=== PATIENT | male | born 1995 | race Caucasian/White ===

== ENCOUNTER 2020-02-03 01:24 | Emergency (ER) | payer MEDICAID ==
[2020-02-03] MEDS ORDERED: Ondansetron 4 MG/2 ML SDV IVPUSH ONE (01:59)
[2020-02-03] MEDS ORDERED: HYDROmorphone 1 MG/ML Syringe IVPUSH STA (01:59)
[2020-02-03] MEDS ORDERED: Sodium Chloride 0.9% 1,000 ML IV SCH (02:00)
--- NOTE | 2020-02-03 02:06 | EDM.PDOC ---
ED HPI GENERAL MEDICAL PROBLEM - General Chief Complaint: Abdominal Pain Stated Complaint: ABDOMINAL PAIN/CONSTIPATION Time Seen by Provider: 02/03/20 01:34 Source of Information: Reports: Patient History Limitations: Reports: No Limitations - History of Present Illness INITIAL COMMENTS - FREE TEXT/NARRATIVE: Mr. Chavez is a very pleasant 24-year-old man who now presents to the emergency department with 2 to 3 days of crampy/sharp lower abdominal pain. The pain has been waxing and waning. He states that he feels better if supine, otherwise, he has not identified any modifiers. The patient states that he had a large although hard bowel movement on , 02/02/2020. No recent nausea or vomiting. No recent fever. The patient states that he took ibuprofen around midnight tonight, otherwise, he has not taken any thla-rqz-[id number] or home remedies to address his symptoms. The patient states that he has had similar symptoms in the past, most recently about 2 years ago. He did not seek medical attention at that time. Here in the ED, the patient is found to be hemodynamically stable, afebrile, saturating 97% on room air. The patient states that he last ate around 21:00 last night. Other than recurrent constipation, the patient denies having a recent fever, chills, sore throat, ear pain, nasal or sinus congestion, cough, dyspnea, chest pain, palpitations, nausea, vomiting, diarrhea, urinary symptoms, recent weight gain or weight loss, recent bloody bowel movements or black bowel movements, recent joint aches, headaches, or rashes. The patient does not have a PCP. Abdominal Pain Score (Numeric/FACES): 6 - Related Data Allergies Allergy/AdvReac Type Severity Reaction Status Date / Time No Known Allergies Allergy Verified 02/03/20 01:37 Home Meds: Home Meds . [No Known Home Meds] 02/03/20 [History] Past Medical History Psychiatric History: Reports: ADHD (untreated) - Past Surgical History HEENT Surgical History: Reports: Oral Surgery (wisdom teeth extracted) Social & Family History - Tobacco Use Smoking Status *Q: Current Every Day Smoker Tobacco Use Within Last Twelve Months: Vaping (Nicotine) Years of Tobacco use: 10 Packs/Tins Daily: 0.5 - Alcohol Use Alcohol Use History: Yes Alcohol Use Frequency: Socially - Recreational Drug Use Recreational Drug Use: Yes Drug Use in Last 12 Months: No Recreational Drug Type: Reports: Marijuana/Hashish (last smoked 2017) - Living Situation & Occupation Living situation: Reports: Single, with Significant Other (Girlfriend + her son) Occupation: Employed ([employer]) ED ROS GENERAL - Review of Systems Review Of Systems: Comprehensive ROS is negative, except as noted in HPI. ED EXAM, GI/ABD - Physical Exam Exam: See Below Exam Limited By: No Limitations General Appearance: Alert, WD/WN, No Apparent Distress Eyes: Bilateral: Normal Appearance, EOMI Ears: Normal External Exam, Hearing Grossly Normal Nose: Normal Inspection Throat/Mouth: Normal Inspection, Normal Lips, Normal Voice, No Airway Compromise Head: Atraumatic, Normocephalic Neck: Normal Inspection, Full Range of Motion Respiratory/Chest: No Respiratory Distress, Lungs Clear, Normal Breath Sounds, No Accessory Muscle Use Cardiovascular: Normal Peripheral Pulses, Regular Rate, Rhythm, No Edema, No Gallop, No JVD, No Murmur, No Rub GI/Abdominal Exam: Normal Bowel Sounds, Soft, No Organomegaly, No Distention, No Abnormal Bruit, No Mass, Tender (Considerable tenderness to palpation of the lower abdomen, especially suprapubically and the right lower quadrant. No rebound. Nontender to the upper abdomen. Obturator sign equivocal. Psoas sign equivocal. Heel drop sign equivocal.) (Male) Exam: Deferred Rectal (Males) Exam: Deferred Back Exam: Normal Inspection, Full Range of Motion. No: CVA Tenderness (L), CVA Tenderness (R) Extremities: Normal Inspection, Normal Range of Motion, No Pedal Edema, Normal Capillary Refill Neurological: Alert, Oriented, Normal Cognition, No Motor/Sensory Deficits Psychiatric: Normal Affect Skin Exam: Warm, Dry, Intact, Normal Color, No Rash Course - Vital Signs Last Recorded V/S: Last Vital Signs Temp 37.1 C 02/03/20 01:34 Pulse 100 02/03/20 01:34 Resp 16 02/03/20 01:34 BP 142/83 H 02/03/20 01:34 Pulse Ox 97 02/03/20 01:34 - Orders/Labs/Meds Orders: Active Orders 24 hr Category Date Time Status Abdomen Pelvis w Cont [CT] Stat Exams 02/03/20 01:59 Taken Sodium Chloride 0.9% [Normal Saline] 1,000 ml Med 02/03/20 02:00 Active IV ASDIRECTED Medication Orders Sodium Chloride (Normal Saline) 1,000 mls @ 150 mls/hr IV ASDIRECTED ROLANDO Last Admin: 02/03/20 02:09 Dose: 150 mls/hr Documented by: LASHAE Labs: Laboratory Tests 02/03/20 02/03/20 02/03/20 Range/Units 02:03 02:03 03:25 WBC 5.44 (4.23-9.07) K/mm3 RBC 4.86 (4.63-6.08) M/mm3 Hgb 15.0 (13.7-17.5) gm/dl Hct 45.0 (40.1-51.0) % MCV 92.6 H (79.0-92.2) fl MCH 30.9 (25.7-32.2) pg MCHC 33.3 (32.2-35.5) g/dl RDW Std Deviation 42.7 (35.1-43.9) fL Plt Count 339 H (163-337) K/mm3 MPV 10.0 (9.4-12.3) fl Neutrophils % (Manual) 55 (40-60) % Band Neutrophils % 0 (0-10) % Lymphocytes % (Manual) 26 (20-40) % Atypical Lymphs % 0 % Monocytes % (Manual) 16 H (2-10) % Eosinophils % (Manual) 1 (0.8-7.0) % Basophils % (Manual) 2 H (0.2-1.2) Platelet Estimate Adequate Plt Morphology Comment Normal RBC Morph Comment Normal Sodium 139 (136-145) mEq/L Potassium 3.6 (3.5-5.1) mEq/L Chloride 101 (98-107) mEq/L Carbon Dioxide 30 (21-32) mEq/L Anion Gap 11.6 (5-15) BUN 7 (7-18) mg/dL Creatinine 1.0 (0.7-1.3) mg/dL Est Cr Clr Drug Dosing 124.23 mL/min Estimated GFR (MDRD) > 60 (>60) mL/min BUN/Creatinine Ratio 7.0 L (14-18) Glucose 94 (74-106) mg/dL Calcium 9.0 (8.5-10.1) mg/dL Total Bilirubin 0.5 (0.2-1.0) mg/dL AST 13 L (15-37) U/L ALT 21 (16-63) U/L Alkaline Phosphatase 90 (46-116) U/L Total Protein 7.8 (6.4-8.2) g/dl Albumin 4.3 (3.4-5.0) g/dl Globulin 3.5 gm/dL Albumin/Globulin Ratio 1.2 (1-2) Urine Color Light yellow (Yellow) Urine Appearance Clear (Clear) Urine pH 6.5 (5.0-8.0) Ur Specific [place] 1.015 (1.005-1.030) Urine Protein Negative (Negative) Urine Glucose (UA) Negative (Negative) Urine Ketones Negative (Negative) Urine Occult Blood Negative (Negative) Urine Nitrite Negative (Negative) Urine Bilirubin Negative (Negative) Urine Urobilinogen 0.2 (0.2-1.0) Ur Leukocyte Esterase Negative (Negative) Urine RBC Not seen (0-5) /hpf Urine WBC 0-5 (0-5) /hpf Ur Squamous Epith Cells Not seen (0-5) /hpf Urine Bacteria Rare (FEW) /hpf Urine Mucus Not seen (FEW) /hpf COVID-19 (KEILA) (NEGATIVE) 02/03/20 Range/Units 04:39 WBC (4.23-9.07) K/mm3 RBC (4.63-6.08) M/mm3 Hgb (13.7-17.5) gm/dl Hct (40.1-51.0) % MCV (79.0-92.2) fl MCH (25.7-32.2) pg MCHC (32.2-35.5) g/dl RDW Std Deviation (35.1-43.9) fL Plt Count (163-337) K/mm3 MPV (9.4-12.3) fl Neutrophils % (Manual) (40-60) % Band Neutrophils % (0-10) % Lymphocytes % (Manual) (20-40) % Atypical Lymphs % % Monocytes % (Manual) (2-10) % Eosinophils % (Manual) (0.8-7.0) % Basophils % (Manual) (0.2-1.2) Platelet Estimate Plt Morphology Comment RBC Morph Comment Sodium (136-145) mEq/L Potassium (3.5-5.1) mEq/L Chloride (98-107) mEq/L Carbon Dioxide (21-32) mEq/L Anion Gap (5-15) BUN (7-18) mg/dL Creatinine (0.7-1.3) mg/dL Est Cr Clr Drug Dosing mL/min Estimated GFR (MDRD) (>60) mL/min BUN/Creatinine Ratio (14-18) Glucose (74-106) mg/dL Calcium (8.5-10.1) mg/dL Total Bilirubin (0.2-1.0) mg/dL AST (15-37) U/L ALT (16-63) U/L Alkaline Phosphatase (46-116) U/L Total Protein (6.4-8.2) g/dl Albumin (3.4-5.0) g/dl Globulin gm/dL Albumin/Globulin Ratio (1-2) Urine Color (Yellow) Urine Appearance (Clear) Urine pH (5.0-8.0) Ur Specific [place] (1.005-1.030) Urine Protein (Negative) Urine Glucose (UA) (Negative) Urine Ketones (Negative) Urine Occult Blood (Negative) Urine Nitrite (Negative) Urine Bilirubin (Negative) Urine Urobilinogen (0.2-1.0) Ur Leukocyte Esterase (Negative) Urine RBC (0-5) /hpf Urine WBC (0-5) /hpf Ur Squamous Epith Cells (0-5) /hpf Urine Bacteria (FEW) /hpf Urine Mucus (FEW) /hpf COVID-19 (KEILA) Negative (NEGATIVE) Meds: Medications Generic Name Dose Route Start Last Admin Trade Name Freq PRN Reason Stop Dose Admin Sodium Chloride 1,000 mls @ 150 mls/hr 02/03/20 02:00 02/03/20 02:09 Normal Saline IV 150 mls/hr ASDIRECTED ROLANDO Administration Discontinued Medications Generic Name Dose Route Start Last Admin Trade Name Freq PRN Reason Stop Dose Admin Diatrizoate Meglum/Diatrizoate Sod 90 ml 02/03/20 02:46 02/03/20 03:34 Gastrografin 37% PO 02/03/20 02:47 90 ml ONETIME ONE Administration Hydromorphone HCl 0.5 mg 02/03/20 01:59 02/03/20 02:09 Dilaudid IVPUSH 02/03/20 02:00 0.5 mg ONETIME STA Administration Hydromorphone HCl 0.5 mg 02/03/20 03:30 02/03/20 03:36 Dilaudid IVPUSH 02/03/20 03:31 0.5 mg ONETIME ONE Administration Iopamidol 100 ml 02/03/20 02:46 02/03/20 03:34 Isovue-300 (61%) IVPUSH 02/03/20 02:47 100 ml ONETIME ONE Administration Ondansetron HCl 4 mg 02/03/20 01:59 02/03/20 02:09 Zofran IVPUSH 02/03/20 02:00 4 mg ONETIME ONE Administration Sodium Chloride 10 ml 02/03/20 02:47 02/03/20 03:34 Saline Flush FLUSH 02/03/20 02:48 10 ml ONETIME ONE Administration - Re-Assessments/Exams Free Text/Narrative Re-Assessment/Exam: 02/03/20 02:01 As above, the patient has had crampy/sharp lower abdominal pain waxing and waning since 01/31/2020. He suffers from frequent constipation, but states that he had a large bowel movement on , 02/02/2020. He is hemodynamically stable and afebrile here in the ED. On physical exam, he is quite tender to the lower abdomen, particularly to the suprapubic and right lower quadrant. Obturator, psoas, and heel drop signs are equivocal, nevertheless, his presentation is concerning for acute appendicitis, therefore I have ordered a work-up that includes blood work, a urinalysis, and a CT scan of his abdomen and pelvis with oral and IV contrast. He will also be tested for the SARS-CoV-2 virus. In the meantime, the patient will be given IV fluid, IV Dilaudid, and IV Zofran. 02/03/20 03:52 The patient's CBC is remarkable for platelets mildly elevated at 339,000, with the remainder of his CBC being unremarkable. His CMP is unremarkable. CT of the abdomen and pelvis with oral and IV contrast is read by vRisabel as: 1. No acute findings. 2. The appendix is well-seen and appears normal in the right lower quadrant. 3. Mild constipation with predominance of stool in the sigmoid colon and rectum The patient has not yet provided a urine sample. The swab for the SARS-CoV-2 virus has not yet been collected. 02/03/20 04:30 The patient's urinalysis is unremarkable. 02/03/20 05:04 The patient's test for the SARS-CoV-2 virus has returned negative. Notified by Demetra ZAIDI that the patient had a loose bowel movement, probably because of the oral contrast, and that he now feels much better. 02/03/20 05:06 Test results discussed with the patient. As above, today's work-up is unremarkable, and does not explain the cause of his pain, but I reassured him that what ever is or was, it does not appear to be anything serious.. I will discharge him home. 02/03/20 05:12 Notified by Demetra ZAIDI that the patient requested a doctor's note for yesterday and today. I have written a note excusing him from work for today, however, I cannot go retroactive. Departure - Departure Time of Disposition: 05:07 Disposition: Home, Self-Care 01 Condition: Good Clinical Impression: Lower abdominal pain of unknown etiology - Discharge Information *PRESCRIPTION DRUG MONITORING PROGRAM REVIEWED*: Not Applicable *COPY OF PRESCRIPTION DRUG MONITORING REPORT IN PATIENT ALISON: Not Applicable Instructions: Abdominal Pain, Adult, [id number] Referrals: PCP,None [Primary Care Provider] - Forms: ED Department Discharge, ED Return to Work/School Form Additional Instructions: You were seen in the emergency room for 2 days of lower abdominal pain. Work-up in the ER included blood work, a urinalysis, CT scan of your abdomen and pelvis with oral and IV contrast, and a test for the SARS-CoV-2 virus. Your entire work-up was unremarkable, and does not explain the cause of your pain. You do not have appendicitis. If your symptoms persist, we recommend that you take [id number] ibuprofen, 3 tablets (600 mg) up to every 8 hours, with food, as needed for discomfort. If any other problems, please do not hesitate to return to the ER. Sepsis Event Note (ED) - Evaluation Sepsis Screening Result: No Definite Risk - Focused Exam Vital Signs: Vital Signs Temp Pulse Resp BP Pulse Ox 02/03/20 01:34 37.1 C 100 16 142/83 H 97 - My Orders Last 24 Hours: My Active Orders 02/03/20 01:59 Abdomen Pelvis w Cont [CT] Stat 02/03/20 02:00 Sodium Chloride 0.9% [Normal Saline] 1,000 ml IV ASDIRECTED - Assessment/Plan Last 24 Hours: My Active Orders 02/03/20 01:59 Abdomen Pelvis w Cont [CT] Stat 02/03/20 02:00 Sodium Chloride 0.9% [Normal Saline] 1,000 ml IV ASDIRECTED
[2020-02-03] MEDS ORDERED: Diatrizoate Meglumine/Diatrizoate Sodium 37% 120 ML Bottle PO ONE (02:46)
[2020-02-03] MEDS ORDERED: Iopamidol 612 MG/ML 100 ML Bottle IVPUSH ONE (02:46)
[2020-02-03] MEDS ORDERED: Sodium Chloride 0.9% 10 ML Syringe FLUSH ONE (02:47)
[2020-02-03] MEDS ORDERED: HYDROmorphone 0.5 MG/0.5 ML Syringe IVPUSH ONE (03:30)
--- NOTE | 2020-02-03 07:16 | CT ---
CT abdomen and pelvis Technique: Multiple axial sections were obtained from above the dome of the diaphragm inferiorly through the pubic symphysis. Intravenous and oral contrast was utilized. Reconstructed coronal and sagittal images were obtained. Comparison: No prior abdominal imaging is available. Findings: Visualized lung bases show nothing acute. Liver contains no focal parenchymal abnormality. Spleen appears within normal limits. Adrenal glands show no nodule. Pancreas shows no discrete abnormality. Gallbladder contains no calcified gallstones. Kidneys show symmetric contrast enhancement without hydronephrosis or mass. Aorta shows no aneurysm. No retroperitoneal adenopathy or mesenteric abnormalities are seen. No pelvic mass or adenopathy is noted. Slight areas of increased stool are seen within the colon. Appendix is seen and is normal in size. No free fluid or inflammatory change is seen within the abdomen or within the pelvis. Bone window settings were reviewed. Schmorl's node deformity is noted within the superior endplate of L3. Fusion is noted within the lower thoracic spine between several vertebral bodies. Impression: 1. Slight increased stool within portions of the colon. 2. Bone findings which are chronic. 3. Nothing acute is otherwise appreciated on CT study of the abdomen and pelvis. Diagnostic code #2 This report was dictated in MDT I agree with preliminary report from [facility], finalized on 02/03/20, 4:50 AM Central Daylight Time
== END 2020-02-03 05:16 | disposition home or self-care (01) ==
LOC: JD.ED 01:24
DX: R10.31 Right lower quadrant pain (principal); F17.210 Nicotine dependence, cigarettes, uncomplicated; Z20.828 Contact with and (suspected) exposure to other viral communicable diseases
CPT/HCPCS: 36415; 74177; 80053; 81001; 85007; 85027; 87635; 96361; 96374; 96375; 96376; 99284; J1170; J2405; J7030; Q9963; Q9967; U0002

== ENCOUNTER 2021-12-11 02:23 | Emergency (ER) | payer MEDICAID ==
[2021-12-11] MEDS ORDERED: Naloxone 0.4 MG/ML SDV ONE (02:34)
[2021-12-11] MEDS ORDERED: Ondansetron 4 MG/2 ML SDV ONE (02:38)
[2021-12-11] MEDS ORDERED: Sodium Chloride 0.9% 1,000 ML ONE (02:38)
[2021-12-11] MEDS ORDERED: Naloxone 0.4 MG/ML SDV IVPUSH ONE ×2 (02:42→04:15)
[2021-12-11] MEDS ORDERED: Sodium Chloride 0.9% 1,000 ML IV ONE (02:42)
[2021-12-11] MEDS ORDERED: Ondansetron 4 MG/2 ML SDV IVPUSH ONE (02:42)
== END 2021-12-11 08:14 | disposition home or self-care (01) ==
LOC: JD.ED 02:23
DX: T40.411A Poisoning by fentanyl or fentanyl analogs, accidental (unintentional), initial encounter (principal); Z87.891 Personal history of nicotine dependence
CPT/HCPCS: 96361; 96374; 96375; 96376; 99284; J2310; J2405; J7030; 99282